=== PATIENT | female | born 1990 | race Caucasian/White ===

== ENCOUNTER → 2024-03-31 | Outpatient (CLI) | payer BC ==
--- NOTE | 2024-03-31 21:11 | US ---
EXAMINATION TYPE: US liver DATE OF EXAM: 03/31/2024 COMPARISON: Ultrasound abdomen limited October 27, 2012 CLINICAL INDICATION: Female, 33 years old with history of R79.89 Elevated LFT'S; TECHNIQUE: Grayscale and color Doppler imaging of the right upper quadrant. FINDINGS: EXAM MEASUREMENTS: Liver Length: 20.0 cm Gallbladder Wall: 0.2 cm CBD: 0.3 cm, color Doppler imaging was utilized to isolate the common bile duct for measurement. Right Kidney: 11.4x4.5x5.9 cm DRAGGER OUT NOTES: limited scan due to pt body habitus and overlying bowel Pancreas: Tail obscured by overlying bowel gas Liver: Increased attenuation, decreased visualization of vessels suggestive of fatty infiltrate ?Hypoechoic areas seen in Lt Lobe: 1. 1.2x0.8x0.6cm 2. 0.8x0.6x0.5cm Gallbladder: ?Echogenic foci seen with dirty shadowing within anterior GB wall Evidence for sonographic Kern's sign: No CBD: wnl Right Kidney: No hydronephrosis or masses seen Heterogeneous hyperechoic appearance of liver. Evaluation for focal masses suboptimal due to the hete rogeneity. There are approximate 1.0 cm low dense lesions left hepatic lobe that are too small to fur ther characterize. IMPRESSION: Hepatomegaly now identified. Heterogeneous hyperechoic appearance of liver suggests diffuse fatty inf iltration. No biliary dilatation noted. Gallbladder sludge suspected. [facility] Rachel Contreras, , 03/31/2024 9:09 PM
== END | disposition home or self-care (01) ==
LOC: RADUSWWP 06:55
PROVIDERS: ATTEND Family Medicine
DX: R79.89 Other specified abnormal findings of blood chemistry (principal); R16.0 Hepatomegaly, not elsewhere classified
CPT/HCPCS: 76705